=== PATIENT | female | born 1965 | race Caucasian/White ===

== ENCOUNTER 2018-01-26 09:03 | Day surgery (SDC) | payer OTHER ==
[~2018-01-26 09:03] MED LIST: MIRALAX17 GM PO; OMEGA 3 1,0001 EACH PO; TAMOXIFEN CITRA20 MG PO; VITAMIN D2000 UNIT PO
== END 2018-01-26 16:05 | disposition home or self-care (01) ==
LOC: CIR.AMB 09:03
DX: M67.421 Ganglion, right elbow (principal); G56.31 Lesion of radial nerve, right upper limb

== ENCOUNTER 2018-09-25 16:00 | Outpatient (CLI) | payer OTHER | END 2018-09-25 16:26 | disposition home or self-care (01) | LOC: RAD 501 16:00 | DX: M77.31 Calcaneal spur, right foot (principal); M77.32 Calcaneal spur, left foot ==

== ENCOUNTER 2020-09-30 12:11 | Emergency (ER) | payer OTHER ==
[~2020-09-30] VITALS: Ht 165.1 cm; Wt 66.7 kg
[2020-09-30] MEDS ORDERED: FIORINAL-COD 31 EACH PO (16:35)
== END 2020-09-30 16:50 | disposition home or self-care (01) ==
LOC: ER 12:11
DX: G43.909 Migraine, unspecified, not intractable, without status migrainosus (principal); H61.23 Impacted cerumen, bilateral; Z03.818 Encounter for observation for suspected exposure to other biological agents ruled out

== ENCOUNTER 2022-04-28 06:52 | Outpatient (CLI) | payer OTHER ==
[~2022-04-28 06:52] MED LIST changes: +FIORINAL-COD 31 EACH PO
== END 2022-04-28 07:31 | disposition home or self-care (01) ==
LOC: LAB 06:52
PROVIDERS: ATTEND Internal Medicine Hematology & Oncology
DX: D50.8 Other iron deficiency anemias (principal); R79.9 Abnormal finding of blood chemistry, unspecified; I10 Essential (primary) hypertension; R74.02 Elevation of levels of lactic acid dehydrogenase [LDH]; K76.89 Other specified diseases of liver; E55.9 Vitamin D deficiency, unspecified; D47.2 Monoclonal gammopathy; C90.00 Multiple myeloma not having achieved remission; Z80.3 Family history of malignant neoplasm of breast; C50.111 Malignant neoplasm of central portion of right female breast; K21.9 Gastro-esophageal reflux disease without esophagitis

== ENCOUNTER 2025-04-29 10:11 | Outpatient (CLI) | payer OTHER ==
[2025-04-29 11:52] LABS: BASO % 1.2 % (0.1-1.2); EOS # 0.16 (0.04-0.54); EOS % 2.6 % (0.7-7.0); LYMPH # 2.54 (1.18-3.74); LYMPH % 41.9 % (19.3-53.1); MEAN PLATELET VOLUME 9.10 fl (9.4-12.4); MONO # 0.47 (0.24-0.82); MONO % 7.8 % (4.7-12.5); NEUT # 2.80 (1.56-6.13); NEUT % 46.2 % (34.0-71.1); RED CELL DISTRIBUTION WIDTH 13.8 % (11.6-14.4)
[2025-04-29 12:06] LABS: ERYTHROCYTE SEDIMENTATION RATE 14 mm/hr (0-30)
[2025-04-29 12:29] LABS: % SATURACION 31.6 % (15-50); ALT/SGPT 33.0 U/L (12-78); AST/SGOT 22.0 U/L (15-37); BILIRUBIN TOTAL 0.63 mg/dL (0.3-1.2); BUN CREA RATIO 33.0 (7.0-25.0); CREATININE SERUM 0.6 mg/dL (0.55-1.02); FE 138.0 ug/dl (50-170); GFR 102.68; GLOBULINA 3.0 G/DL (2.4-3.5); GLUCOSE FASTING 90.0 mg/dL (65-100); LDH 213.0 U/L (84-246); OSMOLALITY SERUM 285.0 MOSM/KG (275-295)
[2025-04-29 12:57] LABS: FOLIC ACID 17.35 ng/ml (4.78-20)
[2025-04-29 12:58] LABS: VITAMIN D3 25 HYDROXY 36.7 ng/ml (30-120)
[2025-05-01 09:11] LABS: CA 125 19.3 U/mL (0.0-38.1); CA 15-3 17.8 U/mL (0.0-25.0)
[2025-05-01 15:12] LABS: CYCLIC CITRULLINE PEPTIDE 7 units (0-19)
== END 2025-04-29 10:15 | disposition home or self-care (01) ==
LOC: LAB 10:11
PROVIDERS: ATTEND Internal Medicine Hematology & Oncology
DX: M06.9 Rheumatoid arthritis, unspecified (principal); D64.9 Anemia, unspecified; Z80.3 Family history of malignant neoplasm of breast; D47.2 Monoclonal gammopathy; C50.111 Malignant neoplasm of central portion of right female breast; K21.9 Gastro-esophageal reflux disease without esophagitis; D50.8 Other iron deficiency anemias; I10 Essential (primary) hypertension; K76.89 Other specified diseases of liver; R74.02 Elevation of levels of lactic acid dehydrogenase [LDH]; E55.9 Vitamin D deficiency, unspecified; C90.00 Multiple myeloma not having achieved remission; C50.919 Malignant neoplasm of unspecified site of unspecified female breast; R97.0 Elevated carcinoembryonic antigen [CEA]